=== PATIENT | female | born 1980 | race Native Hawaiian/Other Pacific Islander ===

== ENCOUNTER 2016-12-11 19:45 | Emergency (ER) | payer MEDICAID ==
--- NOTE | 2016-12-11 20:13 | EDPHY ---
H & P Stated Complaint: bloating, abd pain x2d, similar to hx constipation; urinary pain/hesitancy - Personal History LMP (Females 10-55): 15-21 Days Ago Current Tetanus/Diphtheria Vaccine: Yes Current Tetanus Diphtheria and Acellular Pertussis (TDAP): Yes Tetanus Vaccine Date: 11/2014 - Medical/Surgical History Hx Asthma: No Hx Chronic Respiratory Disease: No Hx Diabetes: No Hx Cardiac Disease: No Hx Renal Disease: No Hx Cirrhosis: No Hx Alcoholism: No Hx HIV/AIDS: No Hx Splenectomy or Spleen Trauma: No Other PMH: cholecystectomy - Social History Smoking Status: Never smoked Time Seen by Provider: 12/11/16 20:12 Constitutional: Initial Vital Signs Temperature (C) 36.8 C 12/11/16 19:49 Heart Rate 70 12/11/16 19:49 Respiratory Rate 16 12/11/16 19:49 Blood Pressure 108/86 H 12/11/16 19:49 O2 Sat (%) 97 12/11/16 19:49 O2 Delivery Mode Room Air Allergies/Adverse Reactions: No Known Allergies Allergy (Verified 12/11/16 19:54) Home Medications: Medication Instructions Recorded Ondansetron HCl [Zofran] 4 mg PO Q4-6PRN PRN #10 tablet 12/11/16 Medical Decision Making - Diagnostics Imaging: Imaging Impressions Abdomen CT 12/11/16 20:17 Impression: 1. No small bowel obstruction or localized intra-abdominal inflammatory process. 2. Large volume of food within the stomach may be due to eating immediately prior to the study. Alternatively this may be manifestation of gastric outlet obstruction or gastroparesis. 3. Pelvic varices. If the patient has chronic pelvic pain perhaps it is manifestation of pelvic congestion syndrome. 4. Cholecystectomy. No biliary dilation. Findings discussed with Emergency Department physician, Tyler Walters MD, on at 2156 hours. ED Course/Re-evaluation: CHIEF COMPLAINT: Abdominal pain, distention, nausea and vomiting HISTORY OF PRESENT ILLNESS: Healthy 36-year-old female who yesterday developed some nausea and abdominal distention. She states that she has never had symptoms like this before. She feels very sick according to her. Her belly is very tense and swollen according to her. She denies due to tubal ligation. She has had 3 C sections and a cholecystectomy and no other abdominal surgeries. She complains that the bumps in the car hurt. REVIEW OF SYSTEMS: A 10 point review of systems was performed and is negative with the exception of the elements mentioned in the history of present illness. PHYSICAL EXAM: HR, BP, O2 Sat, RR. Temp noted General Appearance: Alert, well hydrated, appropriate, and non-toxic appearing. Head: Atraumatic without scalp tenderness or obvious injury Eyes: Pupils equal, round, reactive to light and accommodation, EOMI, no trauma , no injection. Ears: Clear bilaterally, no perforation, normal landmarks Nose: Atraumatic, no rhinorrhea, clear. Throat: There is no erythema or exudates, no lesions, normal tonsils, mucus membranes moist. Neck: Supple, 2+ carotid upstroke, nontender, no lymphadenopathy. Respiratory: No retractions, no distress, no wheezes, and no accessory muscle use. Lungs are clear to auscultation bilaterally. Cardiovascular: Regular rate and rhythm, no murmurs, rubs, or gallops. Bilateral carotid, radial, dorsalis pedis, and posterior tibial pulses intact. Good capillary refill all extremities. Gastrointestinal: Abdomen is tense and distended and painful everywhere with peritoneal signs. Musculoskeletal: Normal active ROM of all extremities, atraumatic. Neurological: Alert, appropriate, and interactive. The patient has normal DTRs and non-focal cranial nerves, motor, sensory, and cerebellar exam. Skin: No rashes, good turgor, no nodules on palpation. Past medical history: Patient denies Past surgical history: 3 C sections and cholecystectomy Family history: Noncontributory Social history: , does not abuse tobacco drugs or alcohol, 3 children DIAGNOSTICS/PROCEDURES/CRITICAL CARE TIME: Study: CT of the abdomen and pelvis with IV contrast Indication: distended abdomen with nausea vomiting Results: CT scan of the abdomen and pelvis was obtained. The results of the study will be signed out to Dr. Seb Starr to interpret and make final disposition DIFFERENTIAL DIAGNOSIS: The differential diagnosis for the patient's abdominal pain included but was not limited to ovarian cyst, pelvic inflammatory disease, ovarian torsion, urinary tract infection, ectopic , cholecystitis, and appendicitis. MEDICAL DECISION MAKING: This patient has 24 hours worth of nausea vomiting and abdominal distention. She has had for abdominal surgeries. She has never had any problems with her abdomen. She has no history of obstruction. Laboratory studies and CT of the abdomen pelvis with contrast is pending. I am concerned about an obstructive process. This patient will be signed out to Dr. Starr dated at shift change interpret the laboratory studies, CT scan, and make final disposition. (Tyler Walters) 2222: I did go and see and evaluate this patient she is resting comfortably after IV Dilaudid. She feels much better. No vomiting. She does still complain of some abdominal distension her upper abdomen. This pretty soft. No guarding or peritoneal signs. Blood work reviewed. CT scan shows stomach full of food. She tells me she is having postprandial fullness for the past [address] scan of the abdomen pelvis with IV contrast The results of the study are the gastric region very dilated fluid and food filled. Questionable gastric outlet obstruction The study was read by Dr. Gresham. I viewed the images myself on the PACS system. 7: Spoke with Dr. Cordova who will come and see and evaluate the patient unclear this patient needs an NG tube hospital admission will await his evaluation. Patient at this time is resting comfortably no vomiting no abdominal pain. Much improved after IV fluids nausea medicine pain medicine. Blood work reviewed CT scan reviewed. 2215: Dr. Diaz at bedside evaluating patient. Reviewed CT. Does not feel this is surgical. Recommends close GI follow-up with emptying study, EGD. 2222: Dr. Diaz did see and evaluate the patient he feels that the patient go home. Patient is comfortable this plan. She understands she needs to follow up with GI. Small ingestion of food. Lots of liquids. Strict return precautions given. I will refer to GI Zofran prescription. She understands return for worsening symptoms follow-up with GI outpatient. No history of diabetic gastroparesis however most likely does have gastric paresis needs EGD and swallow study. Gastric emptying study. (Seb Starr) - Data Points Laboratory Results: Laboratory Results 12/11/16 20:23 12/11/16 20:23 12/11/16 12/11/16 12/11/16 20:52 20:23 20:23 WBC RBC Hgb Hct MCV MCH MCHC RDW Plt Count MPV Neut % (Auto) Lymph % (Auto) [place] % (Auto) Eos % (Auto) Baso % (Auto) Nucleat RBC Rel Count Absolute Neuts (auto) Absolute Lymphs (auto) Absolute Monos (auto) Absolute Eos (auto) Absolute Basos (auto) Absolute Nucleated RBC Immature Gran % Immature Gran # Sodium 141 mEq/L mEq/L (134-144) Potassium 4.0 mEq/L mEq/L (3.5-5.2) Chloride 110 mEq/L mEq/L (97-110) Carbon Dioxide 20 mEq/l L mEq/l (22-31) Anion Gap 11 mEq/L mEq/L (8-16) BUN 10 mg/dL mg/dL (7-23) Creatinine 0.7 mg/dL mg/dL (0.6-1.0) Estimated GFR > 60 Glucose 89 mg/dL mg/dL (70-100) Calcium 8.7 mg/dL mg/dL (8.5-10.4) Total Bilirubin 0.4 mg/dL mg/dL (0.1-1.4) Conjugated Bilirubin 0.4 mg/dL mg/dL (0.0-0.5) Unconjugated Bilirubin 0.0 mg/dL mg/dL (0.0-1.1) AST 28 IU/L IU/L (14-46) ALT 30 IU/L IU/L (9-52) Alkaline Phosphatase 108 IU/L IU/L (38-126) Total Protein 7.4 g/dL g/dL (6.3-8.2) Albumin 4.3 g/dL g/dL (3.5-5.0) Lipase 97.0 IU/L IU/L (23-300) Beta HCG, Qual NEGATIVE Urine Color YELLOW Urine Appearance CLEAR Urine pH 5.0 (5.0-7.5) Ur Specific [place] 1.016 (1.002-1.030) Urine Protein NEGATIVE (NEGATIVE) Urine Ketones NEGATIVE (NEGATIVE) Urine Blood NEGATIVE (NEGATIVE) Urine Nitrate NEGATIVE (NEGATIVE) Urine Bilirubin NEGATIVE (NEGATIVE) Urine Urobilinogen NEGATIVE EU EU (0.2-1.0) Ur Leukocyte Esterase NEGATIVE (NEGATIVE) Ur Culture Indicated? NOT INDICATED (NI) Urine Glucose NEGATIVE (NEGATIVE) 12/11/16 20:23 WBC 7.51 10^3/uL 10^3/uL (3.80-9.50) RBC 4.48 10^6/uL 10^6/uL (4.18-5.33) Hgb 11.7 g/dL L g/dL (12.6-16.3) Hct 36.3 % L % (38.0-47.0) MCV 81.0 fL L fL (81.5-99.8) MCH 26.1 pg L pg (27.9-34.1) MCHC 32.2 g/dL L g/dL (32.4-36.7) RDW 13.8 % % (11.5-15.2) Plt Count 291 10^3/uL 10^3/uL (150-400) MPV 10.3 fL fL (8.7-11.7) Neut % (Auto) 45.5 % % (39.3-74.2) Lymph % (Auto) 43.7 % % (15.0-45.0) [place] % (Auto) 7.1 % % (4.5-13.0) Eos % (Auto) 2.9 % % (0.6-7.6) Baso % (Auto) 0.4 % % (0.3-1.7) Nucleat RBC Rel Count 0.0 % % (0.0-0.2) Absolute Neuts (auto) 3.42 10^3/uL 10^3/uL (1.70-6.50) Absolute Lymphs (auto) 3.28 10^3/uL H 10^3/uL (1.00-3.00) Absolute Monos (auto) 0.53 10^3/uL 10^3/uL (0.30-0.80) Absolute Eos (auto) 0.22 10^3/uL 10^3/uL (0.03-0.40) Absolute Basos (auto) 0.03 10^3/uL 10^3/uL (0.02-0.10) Absolute Nucleated RBC 0.00 10^3/uL 10^3/uL (0-0.01) Immature Gran % 0.4 % % (0.0-1.1) Immature Gran # 0.03 10^3/uL 10^3/uL (0.00-0.10) Sodium Potassium Chloride Carbon Dioxide Anion Gap BUN Creatinine Estimated GFR Glucose Calcium Total Bilirubin Conjugated Bilirubin Unconjugated Bilirubin AST ALT Alkaline Phosphatase Total Protein Albumin Lipase Beta HCG, Qual Urine Color Urine Appearance Urine pH Ur Specific [place] Urine Protein Urine Ketones Urine Blood Urine Nitrate Urine Bilirubin Urine Urobilinogen Ur Leukocyte Esterase Ur Culture Indicated? Urine Glucose Medications Given: Discontinued Medications Hydromorphone HCl (Dilaudid) 0.5 mg IVP EDNOW ONE Stop: 12/11/16 20:17 Last Admin: 12/11/16 20:37 Dose: 0.5 mg Sodium Chloride (Ns) 1,000 mls @ 0 mls/hr IV ONCE ONE PRN Reason: Wide Open Stop: 12/11/16 20:17 Last Admin: 12/11/16 20:35 Dose: 1,000 mls Sodium Chloride (Ns) 1,000 mls @ 0 mls/hr IV ONCE ONE PRN Reason: Wide Open Stop: 12/11/16 20:17 Last Admin: 12/11/16 20:35 Dose: 1,000 mls Ondansetron HCl (Zofran) 4 mg IVP EDNOW ONE Stop: 12/11/16 20:17 Last Admin: 12/11/16 20:36 Dose: 4 mg Departure - Departure Disposition: [facility] Inpatient Acute Clinical Impression: Gastric distention Abdominal pain Qualifiers: Abdominal location: epigastric Qualified Code(s): R10.13 - Epigastric pain Condition: Good Instructions: Acute Abdominal Pain (ED) Additional Instructions: 1. Return emergency room if you have worsening symptoms includes worsening abdominal pain, fever vomiting. 2.Please follow up with Gastroenterology need to call there to make an appointment. Referrals: Lisa Pascal PA [Primary Care Provider] - As per Instructions Ascencion Brown MD [Medical Doctor] - As per Instructions Prescriptions: Ondansetron HCl [Zofran] 4 mg PO Q4-6PRN PRN #10 tablet PRN Reason: Nausea/Vomiting, Use 1st
[2016-12-11] MEDS ORDERED: NS 1,000 ML IV ONE ×2 (20:16)
[2016-12-11] MEDS ORDERED: HYDROmorphONE/DILAUDID 1 MG/ML SYR IVP ONE (20:16)
[2016-12-11] MEDS ORDERED: ONDANSETRON 4 MG/2 ML VIAL IVP ONE (20:16)
[2016-12-11 20:33] LABS: % IMMATURE GRANULYOCYTES 0.4 % (0.0-1.1); ABSOLUTE IMMATURE GRANULOCYTES 0.03 10^3/uL (0.00-0.10); ADD DIFF? NO; ADD MORPH? NO; ADD SCAN? NO; ATYPICAL LYMPHOCYTE FLAG 20 (0-99); FRAGMENT RBC FLAG 0 (0-99); HEMATOCRIT 36.3 % (38.0-47.0); HEMOGLOBIN 11.7 g/dL (12.6-16.3); LEFT SHIFT FLG 0 (0-99); LIPEMIA HEMOLYSIS FLAG 80 (0-99); MEAN CELL HEMOGLOBIN 26.1 pg (27.9-34.1); MEAN CELL HEMOGLOBIN CONCENTR. 32.2 g/dL (32.4-36.7); MEAN PLATELET VOLUME 10.3 fL (8.7-11.7); PLATELET CLUMPS FLAG 10 (0-99); PLATELET COUNT 291 10^3/uL (150-400); RED BLOOD CELL COUNT 4.48 10^6/uL (4.18-5.33); RED CELL DISTRIBUTION WIDTH 13.8 % (11.5-15.2)
[2016-12-11 20:49] LABS: ALANINE AMINOTRANSFERASE 30 IU/L (9-52); ALBUMIN 4.3 g/dL (3.5-5.0); ALKALINE PHOSPHATASE 108 IU/L (38-126); ANION GAP 11 mEq/L (8-16); ASPARTATE AMINOTRANSFERASE 28 IU/L (14-46); BILIRUBIN,TOTAL 0.4 mg/dL (0.1-1.4); BILIRUBIN-CONJUGATED 0.4 mg/dL (0.0-0.5); CALCIUM 8.7 mg/dL (8.5-10.4); CARBON DIOXIDE 20 mEq/l (22-31); CHLORIDE 110 mEq/L (97-110); CREATININE 0.7 mg/dL (0.6-1.0); GLOMERULAR FILTRATION RATE > 60; GLUCOSE 89 mg/dL (70-100); SODIUM 141 mEq/L (134-144); TOTAL PROTEIN 7.4 g/dL (6.3-8.2)
[2016-12-11 21:01] VITALS: RESP 20
[2016-12-11 21:10] LABS: COLOR YELLOW; LEUKOCYTE ESTERASE,URINE NEGATIVE (NEGATIVE); NITRITE,URINE NEGATIVE (NEGATIVE)
[2016-12-11] MEDS ORDERED: IOPAMIDOL (ISOVUE-300) 100 ML BTL IV ONE (21:13)
[2016-12-11 22:40] VITALS: BP 122/69; PULSE 65; TEMP 98.2; O2SAT 98
--- NOTE | 2016-12-11 23:29 | GCON ---
[f rep st] CONSULTATION DATE OF CONSULTATION: 12/11/2016 CHIEF COMPLAINT: Epigastric pain. HISTORY OF PRESENT ILLNESS: This is an otherwise healthy 36-year-old female, who presents to the em ergency department this evening with a 36-48 hour history of worsening epigastric pain and fullness. Briefly, the patient states that she had never had symptoms like this before and states that she w as having trouble taking in oral intake starting last evening. This persisted throughout the day an d was slowly accompanied by worsening abdominal distention, epigastric pain, and nausea which prompt ed her presentation here. Here in the emergency department, she has had a thorough workup including imaging and labs as well as IV fluids and narcotics. Since then on my evaluation, the patient stat es that her fullness has resolved along with her nausea and that her abdominal distention is complet crispin gone as well. She had never had symptoms like this before. Denies having any history of any ga stric outlet problems or gastroparesis and states that her diet has been relatively normal lately an d that she has no new change of foods, no significant dietary changes and no significant exposures o r travel outside the country. PAST MEDICAL HISTORY: None. PAST SURGICAL HISTORY: Laparoscopic cholecystectomy. CURRENT MEDICATIONS: None. ALLERGIES: None. REVIEW OF SYSTEMS: A full 10-point review was performed and unless explicitly stated otherwise is o therwise negative. PHYSICAL EXAMINATION: VITAL SIGNS: Temperature 36.8, heart rate 70, blood pressure 108/86, and she is 97% on room air. GENERAL: She is alert and oriented, in no acute distress. LUNGS: Clear to a uscultation bilaterally. CV: She has a regular rate and rhythm without any murmurs. ABDOMEN: Obe se, soft, nondistended, nontender. Previous laparoscopic incisions consistent with surgical history present. EXTREMITIES: Warm. LABORATORY DATA: White blood cell count normal at 7 with a lymphocytosis, hemoglobin 11.7, platelet s 291. Chemistries are unremarkable. UA is negative for acute urinary tract infection. IMAGING: Includes an abdominal CT scan, which shows a largely distended stomach with food particles , no small bowel obstruction or any other acute findings. ASSESSMENT AND PLAN: 36-year-old female with acute onset epigastric pain, now resolved. I reviewed the patient's imaging myself today and had a discussion with the ED attending, as well. I do not s ee any acute surgical processes at this point in time. I do feel that if the patient persists to lutz ve epigastric pain and poor gastric emptying, she should be seen by a national stormwater leader. They coul d perform upper endoscopy and a swallow study as well as nuclear medicine imaging to assess the actu al function of the stomach itself, but do not feel that she has any acute surgical processes at this time. I discussed this with the patient. She understands. She will follow up with her primary ca re provider within the next week or so, so that she can get established with a national stormwater leader to have the above studies ordered and followed up appropriately. /[id number]/MODL
== END 2016-12-11 22:41 | disposition home or self-care (01) ==
DX: R14.0 Abdominal distension (gaseous) (principal); Z90.49 Acquired absence of other specified parts of digestive tract
CPT/HCPCS: 96374; J1170; J2405; Q9967

== ENCOUNTER 2017-10-21 18:51 | Emergency (ER) | payer MEDICAID ==
[2017-10-21] MEDS ORDERED: ACETAMINOPHEN 500 MG TAB PO ONE (19:25)
--- NOTE | 2017-10-21 19:26 | EDPHY ---
H & P Time Seen by Provider: 10/21/17 19:16 HPI/ROS: CHIEF COMPLAINT: Sore throat HISTORY OF PRESENT ILLNESS: Patient presents with symptoms since last night. Runny nose and a cough, associated sore throat, mild headache. Symptoms moderate to severe not really better Motrin last 600 mg at 4:30 p.m.. She can swallow but it is painful. Is able to take oral fluids. Mild headache but no neck stiffness. Does have diffuse myalgias. REVIEW OF SYSTEMS: Eye: no change in vision ENT: No ear symptoms Cardiac: no chest pain or syncope Pulmonary: Not short of breath Abdomen: no vomiting, diarrhea, abdominal pain Musculoskeletal: Myalgias as noted above Skin: no rash Neuro: HPI Constitutional: HPI : no urinary symptoms A comprehensive 10 point review of systems is otherwise negative aside from elements mentioned in the history of present illness. PAST MEDICAL HISTORY: Cholecystectomy Social history: No drugs or foreign travel General Appearance: Alert and conversant, cooperative. Eyes: No scleral icterus. ENT, Mouth: Normal mucous membranes. Normal tympanic membranes, no trismus, pharynx has erythema but no exudate or tonsillar swelling. Uvula midline. Respiratory: Normal respiratory effort, breath sounds equal, lungs are clear to auscultation. Cardiovascular: Regular rate and rhythm. Gastrointestinal: Abdomen is soft and non tender. Neurological: Alert, face symmetric, normal motor and sensory in extremities. Skin: Warm and dry, no rashes. Musculoskeletal: No peripheral edema. Normal range of motion of the neck. Psychiatric: Not agitated. Emergency Department course/MDM: Oral Tylenol, flu and strep sent. 1946: Results discussed including RSV positive, flu and strep negative. Dexamethasone discussed and consented. Smoking Status: Never smoked Constitutional: Initial Vital Signs Temperature (C) 37 C 10/21/17 18:56 Heart Rate 85 10/21/17 18:56 Respiratory Rate 16 10/21/17 18:56 Blood Pressure 122/76 H 10/21/17 18:56 O2 Sat (%) 99 10/21/17 18:56 O2 Delivery Mode Room Air Allergies/Adverse Reactions: No Known Allergies Allergy (Verified 10/21/17 18:55) Home Medications: Medication Instructions Recorded Ibuprofen 10/21/17 Medical Decision Making Differential Diagnosis: Differential considered including but not limited to strep throat, epiglottitis , peritonsillar abscess, retropharyngeal abscess, influenza - Data Points Laboratory Results: 10/21/17 10/21/17 Unknown 19:00 Nasal Influenza A PCR NEGATIVE FOR FLU A (NEGATIVE) Nasal Influenza B PCR NEGATIVE FOR FLU B (NEGATIVE) RSV (PCR) RSV DETECTED H (NEGATIVE) Group A Strep Screen NEGATIVE (NEGATIVE) Group A Strep DNA Pending Medications Given: Discontinued Medications Acetaminophen (Tylenol) 1,000 mg PO EDNOW ONE Stop: 10/21/17 19:26 Last Admin: 10/21/17 19:27 Dose: 1,000 mg Dexamethasone (Decadron) 8 mg PO EDNOW ONE Stop: 10/21/17 19:47 Last Admin: 10/21/17 19:53 Dose: 8 mg Lidocaine (Lidocaine 2% Viscous) 5 ml PO EDNOW ONE Stop: 10/21/17 19:36 Last Admin: 10/21/17 19:39 Dose: 5 ml Departure - Departure Disposition: Home, Routine, Self-Care Clinical Impression: RSV infection Acute pharyngitis Qualifiers: Pharyngitis/tonsillitis etiology: unspecified etiology Qualified Code(s): J02.9 - Acute pharyngitis, unspecified Condition: Good Instructions: Pharyngitis (ED) Additional Instructions: Oral ibuprofen 600 mg and/or Tylenol 650 mg every 8 hr as needed for pain or fever. You had a test positive for RSV; a virus. You received oral dexamethasone 8 mg for sore throat. Referrals: Lisa Pascal PA [Primary Care Provider] - As per Instructions
[2017-10-21] MEDS ORDERED: LIDOCAINE 2% VISCOUS 15 ML UDCUP ONE (19:34)
[2017-10-21] MEDS ORDERED: LIDOCAINE 2% VISCOUS 15 ML UDCUP PO ONE (19:35)
[2017-10-21] MEDS ORDERED: DEXAMETHASONE 4 MG TAB PO ONE (19:46)
[2017-10-21 19:58] VITALS: BP 125/78; PULSE 78; RESP 18; TEMP 98.6; O2SAT 97
== END 2017-10-21 19:58 | disposition home or self-care (01) ==
DX: J02.9 Acute pharyngitis, unspecified (principal); B97.4 Respiratory syncytial virus as the cause of diseases classified elsewhere